=== PATIENT | female | born 1950 ===

== ENCOUNTER 2016-10-16 15:28 | Emergency (ER) | payer MEDICARE, MEDICAID ==
[2016-10-16 15:28] VITALS: BMI 34.7
[2016-10-16 15:38] VITALS: RESP 14; TEMP 97.8; O2SAT 100
--- NOTE | 2016-10-16 15:54 | ED PDOC ---
Upper Extremity Pain/Injury Time Seen by Provider: 10/16/16 15:42 Chief Complaint (Nursing): Upper Extremity Problem/Injury Chief Complaint (Provider): Right arm pain History Per: Patient History/Exam Limitations: no limitations Quality: "Pain" Additional Complaint(s): Fay Nunez is a 66 y/o female presenting to the ER on 10/16/2016 with complaints of right arm and shoulder pain for over a week. Patient reports she is unsure of the mechanism that caused her to fall. She states she took Tramadol earlier today with mild relief. Denies any head injuries, lost of consciousness, dizziness, or chest pain. Past Medical History Reviewed: Historical Data, Nursing Documentation, Vital Signs Vital Signs: Last Vital Signs Temp 97.8 F 10/16/16 15:37 Pulse 96 H 10/16/16 15:37 Resp 14 10/16/16 15:37 BP 156/85 H 10/16/16 15:37 Pulse Ox 100 10/16/16 15:37 - Medical History PMH: Asthma, Back Problems (h/o thoracic and lumbar vertebral fractures), COPD, Depression, Emphysema, Fibromyalgia, HTN, Osteoporosis Denies: HIV, Chronic Kidney Disease - Family History Family History: States: Unknown Family Hx, Hypertension - Social History Current smoker - smoking cessation education provided: No Alcohol: None Drugs: Denies - Home Medications Home Medications: Ambulatory Orders Medication Instructions Recorded Montelukast [Singulair] 10 mg PO HS #0 tab 03/27/14 Zolpidem [Ambien] 10 mg PO HS 11/17/14 Gabapentin [Neurontin] 600 mg PO BID 03/29/15 traMADol [Ultram] 50 mg PO BID 03/29/15 Albuterol 0.083% [Albuterol 3 ml IH Q4H PRN #50 neb 04/23/16 Sulfate 3 Ml] Amlodipine Besylate/Benazepril 5 - 20 mg PO DAILY 04/23/16 [Amlodipine-Benazepril 5-20 mg] Azithromycin [Zithromax] 250 mg PO DAILY #6 dose 04/23/16 Fluticasone/Vilanterol [Breo 1 each IH DAILY 04/23/16 Ellipta 200-25 Mcg INH] Prednisone 50 mg PO DAILY #4 tablet 04/23/16 oxyCODONE/Acetaminophen [Percocet 1 ea PO Q6H PRN #15 tab 10/16/16 5/325 mg Tab] - Allergies Allergies/Adverse Reactions: Allergies Allergy/AdvReac Type Severity Reaction Status Date / Time codeine Allergy RASH Verified 04/23/16 15:22 hydromorphone HCl AdvReac FATIGUE Verified 04/23/16 15:22 [From Dilaudid] Review of Systems ROS Statement: Except As Marked, All Systems Reviewed And Found Negative Cardiovascular: Negative for: Chest Pain, Light Headedness Musculoskeletal: Positive for: Arm Pain Neurological: Negative for: Headache, Dizziness Physical Exam - Reviewed Nursing Documentation Reviewed: Yes Vital Signs Reviewed: Yes - Physical Exam Appears: Positive for: Non-toxic, No Acute Distress Head Exam: Positive for: ATRAUMATIC, NORMOCEPHALIC Skin: Positive for: Normal Color. Negative for: Rash Eye Exam: Positive for: Normal appearance Neck: Positive for: Normal Cardiovascular/Chest: Positive for: Regular Rate, Rhythm. Negative for: Murmur Respiratory: Positive for: Normal Breath Sounds. Negative for: Respiratory Distress Extremity: Negative for: Normal ROM (decreased ROM to right shoulder), Deformity , Swelling Neurologic/Psych: Positive for: Alert, Oriented - ECG O2 Sat by Pulse Oximetry: 100 Medical Decision Making Medical Decision Makin:42 Initial Impression- 66 y/o female with right shoulder and arm pain Initial Plan- * Percocet 1 tab PO * XR Right shoulder * XR Right elbow Documented by Tye Francisco, acting as a scribe for Leigha Borrero PA-C All medical record entries made by the Scribe were at my direction and personally dictated by me. I have reviewed the chart and agree that the record accurately reflects my personal performance of the history, physical exam, medical decision making, and the department course for this patient. I have also personally directed, reviewed, and agree with the discharge instructions and disposition. Disposition - Clinical Impression Clinical Impression: Shoulder injury, Elbow injury - Patient ED Disposition Is Patient to be Admitted: No Counseled Patient/Family Regarding: Diagnosis, Need For Followup, Rx Given - Disposition Referrals: Jasmeet Weinberg MD [Staff Provider] - Disposition: Routine/Home Disposition Time: 17:30 Condition: GOOD Prescriptions: oxyCODONE/Acetaminophen [Percocet 5/325 mg Tab] 1 ea PO Q6H PRN #15 tab PRN Reason: Pain, Severe (8-10) Instructions: Fall Prevention (ED)
[2016-10-16] MEDS ORDERED: Oxycodone/Acetaminophen 5/325 mg Tab PO STA (16:02)
[2016-10-16] MEDS ORDERED: Oxycodone/Acetaminophen 5/325 mg Tab ONE (16:26)
--- NOTE | 2016-10-16 17:10 | RAD ---
PROCEDURE: Radiographs of the right elbow. HISTORY: pain, s/p fall 2 days ago COMPARISON: No prior. FINDINGS: BONES: No fracture identified. Bones are demineralized. JOINTS: No dislocation seen. Bony articulations appear maintained. SOFT TISSUES: Unremarkable JOINT EFFUSION: There is no elevation of fat pads to suggest a joint effusion OTHER FINDINGS: None. IMPRESSION: No fracture or dislocation identified.
--- NOTE | 2016-10-16 17:11 | RAD ---
PROCEDURE: Radiographs of the Right Shoulder HISTORY: pain s/p fall 2 days ago COMPARISON: None available. FINDINGS: BONES: Osseous demineralization limits evaluation for acute fracture lines. No acute displaced fracture. The distal clavicle and underlying ribs appear intact. JOINTS: No acute dislocation. SOFT TISSUES: Soft tissues appear unremarkable. No evidence of radiopaque foreign body. IMPRESSION: Osseous demineralization. No acute displaced fracture or dislocation evident. If symptoms persist or if there is continued clinical concern, x-ray follow-up in 7-10 days should be considered.
[2016-10-16 17:57] VITALS: BP 147/83; PULSE 87
== END 2016-10-16 17:56 | disposition home or self-care (01) ==
LOC: H.ER 15:28
DX: S49.91XA Unspecified injury of right shoulder and upper arm, initial encounter (principal); S59.901A Unspecified injury of right elbow, initial encounter; W19.XXXA Unspecified fall, initial encounter

== ENCOUNTER 2017-02-18 14:18 | Emergency (ER) | payer MEDICARE, MEDICAID ==
[2017-02-18 14:18] VITALS: BMI 34.7
[2017-02-18 14:25] VITALS: BP 136/72; PULSE 89; RESP 19; TEMP 98; O2SAT 98
[2017-02-18] MEDS ORDERED: Sodium Chloride 0.9% 1,000 ML IV STA (14:36)
[2017-02-18 14:58] LABS: BASO # 0.1 K/uL (0.0-0.2); BASO % 1.2 % (0.0-2.0); EOS # 1.8 K/uL (0.0-0.7); EOS % 15.7 % (0.0-4.0); HEMATOCRIT 40.9 % (34.0-47.0); LYMPH # 1.6 K/uL (1.0-4.3); MEAN CELL VOLUME 84.2 fl (81.0-99.0); MEAN CORPUSCULAR HEMOGLOBIN 27.7 pg (27.0-31.0); MEAN CORPUSCULAR HGB CONC 32.8 g/dL (33.0-37.0); MEAN PLATELET VOLUME 7.7 fl (7.2-11.7); MONO # 1.3 K/uL (0.0-0.8); MONO % 10.9 % (0.0-10.0); NEUT # 6.7 K/uL (1.8-7.0); NEUT % 58.2 % (50.0-75.0); RED CELL DISTRIBUTION WIDTH 14.3 % (11.5-14.5); WHITE BLOOD COUNT 11.6 K/uL (4.8-10.8)
[2017-02-18 15:08] LABS: ALB/GLOB RATIO 1.2 (1.0-2.1); ALKALINE PHOSPHATASE 129 U/L (38-126); ALT/SGPT 32 U/L (9-52); AST/SGOT 34 U/L (14-36); BILIRUBIN,TOTAL 0.7 mg/dl (0.2-1.3); BLOOD UREA NITROGEN 12 mg/dl (7-17); CALCIUM 9.3 mg/dL (8.4-10.2); CARBON DIOXIDE 28 mmol/L (22-30); CHLORIDE 105 mmol/L (98-107); GFR AFRICAN-AMERICAN > 60; GLUCOSE,RANDOM 92 mg/dL (65-105); POTASSIUM 4.6 MMOL/L (3.6-5.0); SODIUM 143 mmol/l (132-148); TOTAL PROTEIN 7.9 G/DL (6.3-8.2)
--- NOTE | 2017-02-18 15:33 | ED PDOC ---
HPI: CCC, URI, Sore Throat Time Seen by Provider: 02/18/17 14:28 Chief Complaint (Nursing): Flu-like Symptoms Chief Complaint (Provider): Flu-like Symptoms History Per: Patient History/Exam Limitations: no limitations Onset/Duration Of Symptoms: Days (x6) Additional Complaint(s): Fay Nunez is a 66 year old female with a past medical history of depression, fibromyalgia, hypertension, osteoporosis and COPD presenting to the ED for an evaluation of flu-like symptoms occurring for 6 days prior to arrival. The patient states he has fatigue, chills, sore throat, and body aches. The patient denies cough, current headache, syncope, difficulty breathing, vomiting, diarrhea, or any sick contacts. She also states she did not receive her flu shot this year. PMD: Nina Curz MD Past Medical History Reviewed: Historical Data, Nursing Documentation, Vital Signs Vital Signs: Last Vital Signs Temp 98.0 F 02/18/17 14:23 Pulse 89 02/18/17 14:23 Resp 19 02/18/17 14:23 BP 136/72 02/18/17 14:23 Pulse Ox 98 02/18/17 16:10 - Medical History PMH: Asthma, Back Problems (h/o thoracic and lumbar vertebral fractures), COPD, Depression, Emphysema, Fibromyalgia, HTN, Osteoporosis Denies: HIV, Chronic Kidney Disease - Family History Family History: States: Hypertension - Social History Current smoker - smoking cessation education provided: No Ex-Smoker (has not smoked in the last 12 months): No Alcohol: None Drugs: Denies - Home Medications Home Medications: Ambulatory Orders Medication Instructions Recorded Montelukast [Singulair] 10 mg PO HS #0 tab 03/27/14 Zolpidem [Ambien] 10 mg PO HS 11/17/14 Gabapentin [Neurontin] 600 mg PO BID 03/29/15 traMADol [Ultram] 50 mg PO BID 03/29/15 Albuterol 0.083% [Albuterol 0.083% 3 ml IH Q4H PRN #50 neb 04/23/16 Inhal Linda (2.5 mg/3 ml) UD] Amlodipine Besylate/Benazepril 5 - 20 mg PO DAILY 04/23/16 [Amlodipine-Benazepril 5-20 mg] Fluticasone/Vilanterol [Breo 1 each IH DAILY 04/23/16 Ellipta 200-25 Mcg INH] Albuterol 0.083% [Albuterol 0.083% 2.5 mg IH QID #30 neb 01/08/17 Inhal Linda (2.5 mg/3 ml) UD] Levofloxacin [Levaquin] 500 mg PO DAILY #7 tablet 01/08/17 Promethazine [Phenergan Syrup] 12.5 mg PO Q6 PRN 7 Days #1 dose 01/08/17 predniSONE [predniSONE Tab] 20 mg PO DAILY #7 tab 01/08/17 Amoxicillin 875 mg PO BID #14 tab 02/18/17 Ibuprofen [Motrin Tab] 600 mg PO Q6 PRN #15 tab 02/18/17 - Allergies Allergies/Adverse Reactions: Allergies Allergy/AdvReac Type Severity Reaction Status Date / Time codeine Allergy RASH Verified 04/23/16 15:22 hydromorphone HCl AdvReac FATIGUE Verified 04/23/16 15:22 [From Dilaudid] Review of Systems ROS Statement: Except As Marked, All Systems Reviewed And Found Negative Constitutional: Positive for: Chills, Other (fatigue and body aches) ENT: Positive for: Throat Pain Respiratory: Negative for: Cough, Shortness of Breath (no difficulty breathing) Gastrointestinal: Negative for: Vomiting, Diarrhea Neurological: Negative for: Headache, Other (no syncope) Physical Exam - Reviewed Nursing Documentation Reviewed: Yes Vital Signs Reviewed: Yes - Physical Exam Appears: Positive for: Non-toxic, No Acute Distress Head Exam: Positive for: ATRAUMATIC, NORMOCEPHALIC Skin: Positive for: Normal Color, Warm, Dry Eye Exam: Positive for: Normal appearance, EOMI, PERRL ENT: Positive for: Normal ENT Inspection, Pharynx Is (normal), TM Is/Are (normal ) Neck: Positive for: Normal, Painless ROM, Supple Cardiovascular/Chest: Positive for: Regular Rate, Rhythm, Chest Non Tender Respiratory: Positive for: Normal Breath Sounds. Negative for: Respiratory Distress Pulses-Carotid (L): 2+ Pulses-Carotid (R): 2+ Pulses-Dorsalis Pedis (L): 2+ Pulses-Dorsalis Pedis (R): 2+ Pulses-Radial (L): 2+ Pulses-Radial (R): 2+ Gastrointestinal/Abdominal: Positive for: Normal Exam, Soft. Negative for: Tenderness Back: Positive for: Normal Inspection Extremity: Positive for: Normal ROM. Negative for: Pedal Edema, Deformity Neurologic/Psych: Positive for: Alert, Oriented (x3). Negative for: Motor/ Sensory Deficits - Laboratory Results Result Diagrams: 02/18/17 14:53 02/18/17 14:53 - ECG O2 Sat by Pulse Oximetry: 98 (RA) Pulse Ox Interpretation: Normal Medical Decision Making Medical Decision Making: Time: 14:28 Impression: URI, RSV, COPD exacerbation, bronchitis, Plan: * CMP * CBC (with differential) * Influenza A B * Urinalysis * NS 0.9% 1,000 ml IV 1,000 mls/hr * Toradol 30 mg IV * [RAD] Chest Two Views (PA/LAT) * Reevaluation Chest X-ray was read by me, Meir Hudson DO, resulted as negative. labs reveal mild leukocytosis and no evidence of other clinical;y significant emergent abnormality. Repeat Alk Phos 1 month to assure resolution. FLu neg Given erythematous throat, clinical symptoms, hx COPD, cover w amoxil and followup PMD On re-eval feeling better, drinking coffee in ED. Scribe Attestation: Documented by Leena Avendano, acting as a scribe for Meir Hudson DO. Provider Scribe Attestation: All medical record entries made by the Scribe were at my direction and personally dictated by me. I have reviewed the chart and agree that the record accurately reflects my personal performance of the history, physical exam, medical decision making, and the department course for this patient. I have also personally directed, reviewed, and agree with the discharge instructions and disposition. Disposition - Clinical Impression Clinical Impression: Pharyngitis, Influenza-like symptoms - Patient ED Disposition Is Patient to be Admitted: No Counseled Patient/Family Regarding: Studies Performed, Diagnosis, Need For Followup, Rx Given - Disposition Referrals: Nina Cruz MD [Medical Doctor] - Disposition: Routine/Home Disposition Time: 16:10 Condition: STABLE Additional Instructions: Take medications as directed. Return to ER for any new or worsening symptoms. Prescriptions: Amoxicillin 875 mg PO BID #14 tab Ibuprofen [Motrin Tab] 600 mg PO Q6 PRN #15 tab PRN Reason: Pain, Moderate (4-7) Instructions: Pharyngitis (ED), Weakness (ED) Forms: [employer] (Ghanaian)
--- NOTE | 2017-02-18 16:12 | RAD ---
HISTORY: fever COMPARISON: Frontal chest 01/06/2017. TECHNIQUE: Chest PA and lateral FINDINGS: LUNGS: No active pulmonary disease. PLEURA: No significant pleural effusion identified. No pneumothorax apparent. CARDIOVASCULAR: Borderline cardiomegaly is stable. No pulmonary derangement evident. OSSEOUS STRUCTURES: No significant abnormalities. VISUALIZED UPPER ABDOMEN: Normal. OTHER FINDINGS: Right paratracheal soft tissue prominence is stable including possible substernal thyroid gland or delete great vessel ectasis dating back at least to 06/07/[address] IMPRESSION: Stable borderline cardiomegaly. No pulmonary derangement or acute pulmonary changes identified.
[2017-02-18 17:01] LABS: RBC URINE 3 /hpf (0-3); URINE BILIRUBIN NEGATIVE (NEGATIVE); URINE BLOOD NEGATIVE (NEGATIVE); URINE COLOR YELLOW (YELLOW); URINE GLUCOSE (UA) NEG (Normal); URINE KETONE NEGATIVE (NEGATIVE); URINE LEUKOCYTE ESTERASE NEG Leu/uL (Negative); URINE PROTEIN 30 mg/dL (NEGATIVE); WBC URINE 1 /hpf (0-5)
== END 2017-02-18 16:43 | disposition home or self-care (01) ==
LOC: H.ER 14:18
DX: J02.9 Acute pharyngitis, unspecified (principal); R53.1 Weakness; F32.9 Major depressive disorder, single episode, unspecified; I10 Essential (primary) hypertension; M79.7 Fibromyalgia; M81.0 Age-related osteoporosis without current pathological fracture; J44.1 Chronic obstructive pulmonary disease with (acute) exacerbation
CPT/HCPCS: 71020; 80053; 81003; 85025; 87804; 96361; 96374; 99283; J1885; J7040

== ENCOUNTER 2017-08-20 14:29 | Emergency (ER) | payer MEDICARE, MEDICAID ==
[2017-08-20 14:29] VITALS: BMI 34.7
[2017-08-20 14:46] VITALS: BP 127/81; PULSE 87; TEMP 98.5; O2SAT 96
[2017-08-20 15:02] VITALS: RESP 23
[2017-08-20] MEDS ORDERED: Albuterol-Ipratrop 3 mg / 0.5 (3 ml) UD INH STA (15:03)
[2017-08-20] MEDS ORDERED: Albuterol-Ipratrop 3 mg / 0.5 (3 ml) UD IH STA ×2 (15:03→16:29)
[2017-08-20] MEDS ORDERED: Sodium Chloride 0.9% 1,000 ML IV STA (15:03)
[2017-08-20 15:19] LABS: BASO # 0.1 K/uL (0.0-0.2); BASO % 1.2 % (0.0-2.0); EOS # 2.6 K/uL (0.0-0.7); EOS % 25.5 % (0.0-4.0); HEMOGLOBIN 13.6 g/dL (12.0-16.0); LYMPH # 1.6 K/uL (1.0-4.3); LYMPH % 15.4 % (20.0-40.0); MEAN CELL VOLUME 83.8 fl (81.0-99.0); MEAN CORPUSCULAR HGB CONC 33.5 g/dL (33.0-37.0); MEAN PLATELET VOLUME 7.9 fl (7.2-11.7); MONO # 0.7 K/uL (0.0-0.8); MONO % 7.2 % (0.0-10.0); NEUT # 5.2 K/uL (1.8-7.0); NEUT % 50.7 % (50.0-75.0); NRBC % 0.1 % (0.0-0.0); PLATELET COUNT 287 K/uL (130-400); RBC 4.85 Mil/uL (3.80-5.20); RED CELL DISTRIBUTION WIDTH 14.6 % (11.5-14.5); WHITE BLOOD COUNT 10.3 K/uL (4.8-10.8)
[2017-08-20 15:37] LABS: BLOOD UREA NITROGEN 11 mg/dl (7-17); CALCIUM 8.8 mg/dL (8.4-10.2); GFR AFRICAN-AMERICAN > 60; GFR NON-AFRICAN AMERICAN > 60
--- NOTE | 2017-08-20 15:46 | ED PDOC ---
HPI: SOB/CHF/COPD Time Seen by Provider: 08/20/17 14:59 Chief Complaint (Nursing): Shortness Of Breath Chief Complaint (Provider): SOB/cough History Per: Patient History/Exam Limitations: no limitations Onset/Duration Of Symptoms: Days Current Symptoms Are (Timing): Still Present Additional Complaint(s): 67 y/o F with PMHx of Asthma, HTN, COPD present to ED complaining of increased baseline SOB x 3-4 days, associated with productive cough, white non bloody sputum, wheezing, chills, chest tightness sensation. Has been using her Ventolin , but her respiratory symptoms persist. Denies chest pain, N/V, abd pain, dizziness, diaphoresis, swelling legs or other complains. PMD: Nina Miller Past Medical History Vital Signs: Last Vital Signs Temp 98.5 F 08/20/17 14:43 Pulse 87 08/20/17 14:43 Resp 23 08/20/17 14:59 BP 127/81 08/20/17 14:43 Pulse Ox 96 08/20/17 15:50 - Medical History PMH: Asthma, Back Problems (h/o thoracic and lumbar vertebral fractures), COPD, Depression, Emphysema, Fibromyalgia, HTN, Osteoporosis Denies: HIV, Chronic Kidney Disease - Family History Family History: States: Unknown Family Hx, Hypertension - Social History Alcohol: None Drugs: Denies - Home Medications Home Medications: Ambulatory Orders Medication Instructions Recorded Montelukast [Singulair] 10 mg PO HS #0 tab 03/27/14 Zolpidem [Ambien] 10 mg PO HS 11/17/14 Gabapentin [Neurontin] 600 mg PO BID 03/29/15 traMADol [Ultram] 50 mg PO BID 03/29/15 Albuterol 0.083% [Albuterol 0.083% 3 ml IH Q4H PRN #50 neb 04/23/16 Inhal Linda (2.5 mg/3 ml) UD] Amlodipine Besylate/Benazepril 5 - 20 mg PO DAILY 04/23/16 [Amlodipine-Benazepril 5-20 mg] Fluticasone/Vilanterol [Breo 1 each IH DAILY 04/23/16 Ellipta 200-25 Mcg INH] Albuterol 0.083% [Albuterol 0.083% 2.5 mg IH QID #30 neb 01/08/17 Inhal Linda (2.5 mg/3 ml) UD] Levofloxacin [Levaquin] 500 mg PO DAILY #7 tablet 01/08/17 Promethazine [Phenergan Syrup] 12.5 mg PO Q6 PRN 7 Days #1 dose 01/08/17 predniSONE [predniSONE Tab] 20 mg PO DAILY #7 tab 01/08/17 Amoxicillin 875 mg PO BID #14 tab 02/18/17 Ibuprofen [Motrin Tab] 600 mg PO Q6 PRN #15 tab 02/18/17 Albuterol Sulfate [Proair Hfa] 0.09 mg IH Q6H PRN #2 inh 08/20/17 predniSONE [predniSONE Tab] 20 mg PO BID 5 Days tab 08/20/17 - Allergies Allergies/Adverse Reactions: Allergies Allergy/AdvReac Type Severity Reaction Status Date / Time codeine Allergy RASH Verified 08/20/17 14:43 hydromorphone HCl AdvReac FATIGUE Verified 08/20/17 14:43 [From Dilaudid] Curb-65 Severity Score - CURB-65 Severity Score Confusion: No Respiratory Rate greater than/equal to 30: No Systolic BP <90 or Diastolic BP less than/equal 60mmHg: No Age >64: Yes Curb-65 Score: 1 Percentage 30-day mortality: 2.7% Wells Criteria for PE - Wells Criteria for Pulmonary Embolism Clinical Signs and Symptoms of DVT: No P.E is #1 Diagnosis, or Equally Likely: No Heart Rate >100: No Immobilization at least 3 days;Surgery previous 4 weeks: No Previous, objectively diagnosed PE or DVT: No Hemoptysis: No Malignancy w/treatment within 6 months, or palliative: No Total Score: 0 Review of Systems ROS Statement: Except As Marked, All Systems Reviewed And Found Negative (as per HPI) Physical Exam - Reviewed Nursing Documentation Reviewed: Yes Vital Signs Reviewed: Yes - Physical Exam Appears: Positive for: Non-toxic, No Acute Distress Head Exam: Positive for: ATRAUMATIC, NORMOCEPHALIC Skin: Positive for: Normal Color, Warm, Dry Eye Exam: Positive for: Normal appearance. Negative for: Conjunctival injection ENT: Positive for: Normal ENT Inspection. Negative for: Sinus Pain/Drainage, Nasal Congestion, Pharyngeal Erythema, Tonsillar Exudate Neck: Positive for: Normal, Supple Cardiovascular/Chest: Positive for: Regular Rate, Rhythm. Negative for: Chest Non Tender, Edema, Bradycardia, Tachycardia Respiratory: Positive for: Decreased Breath Sounds, Wheezing. Negative for: Accessory Muscle Use, Crackles, Rales, Rhonchi, Respiratory Distress Gastrointestinal/Abdominal: Positive for: Bowel Sounds (present), Soft. Negative for: Tenderness, Distended, Guarding, Rebound Back: Positive for: Normal Inspection. Negative for: L CVA Tenderness, R CVA Tenderness Extremity: Positive for: Capillary Refill (<2). Negative for: Pedal Edema Neurologic/Psych: Positive for: Alert, Oriented - Laboratory Results Result Diagrams: 08/20/17 15:13 08/20/17 15:13 - ECG O2 Sat by Pulse Oximetry: 96 Medical Decision Making Medical Decision Making: Short of Breath -Asthma vs COPD exacerbation -labs: CBC, BMP, troponin I, pr--BNP -Duoneb neb -Solumedrol 125 mg IV once -CXR case discussed with Dr. Francisco Re-evaluation labs: CBC : no leukocytosis, BMP: unremarkable, troponin I x 1 negative, Pro- BNP negative -CXR reported as no active disease -feeling better after third Duoneb -stable for discharge home with recommended outpatient f/u in 2-3 days -ER precautions given Case discussed with Dr. Francisco Disposition - Clinical Impression Clinical Impression: Asthma attack - Patient ED Disposition Is Patient to be Admitted: No Discussed With : Pedro Francisco - Disposition Referrals: [facility] [Outside] - 08/21/17 Disposition: Routine/Home Disposition Time: 17:09 Condition: STABLE Additional Instructions: Return if not better in 3 days. Prescriptions: Albuterol Sulfate [Proair Hfa] 0.09 mg IH Q6H PRN #2 inh PRN Reason: Wheezing predniSONE [predniSONE Tab] 20 mg PO BID 5 Days tab Instructions: Asthma in Adults Forms: [employer] (Algerian) Print Language: MALTESE
[2017-08-20 15:52] LABS: EOSINOPHIL 26 % (0-7); LYMPHOCYTE 24 % (20-50); MONOCYTE 8 % (0-10); MYELOCYTE 1 % (0-0); NEUTROPHIL 41 % (42-75); PLATELET ESTIMATE NORMAL (NORMAL); TOTAL CELLS COUNTED 100
[2017-08-20 15:53] LABS: B-TYPE NATRIURETIC PEPTIDE 62.3 pg/ml (0-900)
--- NOTE | 2017-08-20 16:29 | RAD ---
HISTORY: Dyspnea COMPARISON: 02/18/2017 FINDINGS: LUNGS: No active pulmonary disease. PLEURA: No significant pleural effusion identified, no pneumothorax apparent. CARDIOVASCULAR: No radiographic findings to suggest acute or significant cardiovascular disease. OSSEOUS STRUCTURES: No significant abnormalities. VISUALIZED UPPER ABDOMEN: Normal. OTHER FINDINGS: None. IMPRESSION: No active disease. No significant interval change compared to the prior examination(s).
[2017-08-20] MEDS ORDERED: Albuterol-Ipratrop 3 mg / 0.5 (3 ml) UD ONE (17:20)
--- NOTE | 2017-08-21 08:48 | CARD ---
APPROVED REPORT EKG Measurement Heart [id number] <Conclusion> Normal sinus rhythm Septal infarct, age undetermined Abnormal ECG
== END 2017-08-20 18:08 | disposition home or self-care (01) ==
LOC: H.ER 14:29
DX: J45.901 Unspecified asthma with (acute) exacerbation (principal); J44.9 Chronic obstructive pulmonary disease, unspecified; F32.9 Major depressive disorder, single episode, unspecified; I10 Essential (primary) hypertension; M79.7 Fibromyalgia; M81.0 Age-related osteoporosis without current pathological fracture
CPT/HCPCS: 71045; 80048; 83880; 84484; 85025; 93005; 94640; 96374; 99283; J2930; J7030

== ENCOUNTER 2018-02-12 12:33 | Emergency (ER) | payer MEDICARE, MEDICAID ==
[2018-02-12 12:34] VITALS: BMI 34.7
[2018-02-12] MEDS ORDERED: Albuterol-Ipratrop 3 mg / 0.5 (3 ml) UD IH STA ×2 (13:19→15:21)
--- NOTE | 2018-02-12 13:22 | ED PDOC ---
HPI: CCC, URI, Sore Throat Time Seen by Provider: 02/12/18 12:44 Chief Complaint (Nursing): Cough, Cold, Congestion History Per: Patient Onset/Duration Of Symptoms: Days (3) Current Symptoms Are (Timing): Still Present Associated Symptoms: Fever, Cough, Sputum Severity: Moderate Additional Complaint(s): Cough productive yellow sputum assoc with SOB and wheezing x 3 days. No improvement with inhaler. Past Medical History Vital Signs: Last Vital Signs Temp 100.6 F H 02/12/18 12:40 Pulse 113 H 02/12/18 12:40 Resp 16 02/12/18 12:40 BP 135/87 02/12/18 12:40 Pulse Ox 93 L 02/12/18 12:40 - Medical History PMH: Asthma, Back Problems (h/o thoracic and lumbar vertebral fractures), COPD, Depression, Emphysema, Fibromyalgia, HTN, Osteoporosis Denies: HIV, Chronic Kidney Disease - Family History Family History: States: Unknown Family Hx, Hypertension - Home Medications Home Medications: Ambulatory Orders Medication Instructions Recorded Montelukast [Singulair] 10 mg PO HS #0 tab 03/27/14 Zolpidem [Ambien] 10 mg PO HS 11/17/14 Gabapentin [Neurontin] 600 mg PO BID 03/29/15 traMADol [Ultram] 50 mg PO BID 03/29/15 Albuterol 0.083% [Albuterol 0.083% 3 ml IH Q4H PRN #50 neb 04/23/16 Inhal Linda (2.5 mg/3 ml) UD] Amlodipine Besylate/Benazepril 5 - 20 mg PO DAILY 04/23/16 [Amlodipine-Benazepril 5-20 mg] Fluticasone/Vilanterol [Breo 1 each IH DAILY 04/23/16 Ellipta 200-25 Mcg INH] Albuterol 0.083% [Albuterol 0.083% 2.5 mg IH QID #30 neb 01/08/17 Inhal Linda (2.5 mg/3 ml) UD] Levofloxacin [Levaquin] 500 mg PO DAILY #7 tablet 01/08/17 Promethazine [Phenergan Syrup] 12.5 mg PO Q6 PRN 7 Days #1 dose 01/08/17 predniSONE [predniSONE Tab] 20 mg PO DAILY #7 tab 01/08/17 Amoxicillin 875 mg PO BID #14 tab 02/18/17 Ibuprofen [Motrin Tab] 600 mg PO Q6 PRN #15 tab 02/18/17 Albuterol Sulfate [Proair Hfa] 0.09 mg IH Q6H PRN #2 inh 08/20/17 predniSONE [predniSONE Tab] 20 mg PO BID 5 Days tab 08/20/17 Albuterol HFA [Ventolin HFA 90 2 puff IH [id number] #1 puff 11/05/17 mcg/actuation (8 g)] Prednisone [Deltasone] 20 mg PO BID #8 tablet 11/05/17 Azithromycin [Zithromax] 250 mg PO DAILY #6 tab 02/12/18 Prednisone 10 mg PO TID #15 tab.ds.pk 02/12/18 - Allergies Allergies/Adverse Reactions: Allergies Allergy/AdvReac Type Severity Reaction Status Date / Time codeine Allergy RASH Verified 08/20/17 14:43 hydromorphone HCl AdvReac FATIGUE Verified 08/20/17 14:43 [From Dilaudid] Review of Systems ROS Statement: Except As Marked, All Systems Reviewed And Found Negative Constitutional: Positive for: Fever Respiratory: Positive for: Cough, Shortness of Breath, Wheezing Physical Exam - Reviewed Nursing Documentation Reviewed: Yes Vital Signs Reviewed: Yes - Physical Exam Appears: Positive for: Non-toxic, No Acute Distress Head Exam: Positive for: ATRAUMATIC, NORMAL INSPECTION, NORMOCEPHALIC Skin: Positive for: Normal Color, Warm, DRY Eye Exam: Positive for: EOMI, Normal appearance, PERRL ENT: Positive for: Normal ENT Inspection Neck: Positive for: Normal, Painless ROM Cardiovascular/Chest: Positive for: Regular Rate, Rhythm Respiratory: Positive for: Rhonchi, Wheezing Gastrointestinal/Abdominal: Positive for: Normal Exam, Soft Back: Positive for: Normal Inspection Extremity: Positive for: Normal ROM Neurologic/Psych: Positive for: Alert, Oriented - Laboratory Results Result Diagrams: 02/12/18 13:40 02/12/18 13:40 - ECG O2 Sat by Pulse Oximetry: 93 Disposition - Clinical Impression Clinical Impression: COPD exacerbation, Bronchitis - Patient ED Disposition Is Patient to be Admitted: No Counseled Patient/Family Regarding: Studies Performed, Diagnosis, Need For Followup, Rx Given - Disposition Referrals: Jame Donald MD [Staff Provider] - Disposition: Routine/Home Disposition Time: 15:52 Condition: FAIR Prescriptions: Azithromycin [Zithromax] 250 mg PO DAILY #6 tab Prednisone 10 mg PO TID #15 tab.ds.pk Instructions: Acute Bronchitis, Exacerbation of COPD Forms: [employer] (Frisian)
[2018-02-12 13:52] LABS: BASO # 0.1 K/uL (0.0-0.2); BASO % 0.5 % (0.0-2.0); EOS # 1.9 K/uL (0.0-0.7); EOS % 19.3 % (0.0-4.0); HEMOGLOBIN 12.9 g/dL (12.0-16.0); LYMPH # 0.7 K/uL (1.0-4.3); MEAN CELL VOLUME 87.3 fl (81.0-99.0); MEAN CORPUSCULAR HGB CONC 32.1 g/dL (33.0-37.0); MONO % 10.1 % (0.0-10.0); NEUT # 6.2 K/uL (1.8-7.0); NEUT % 63.1 % (50.0-75.0); PLATELET COUNT 232 K/uL (130-400); RBC 4.62 Mil/uL (3.80-5.20); RED CELL DISTRIBUTION WIDTH 13.7 % (11.5-14.5); WHITE BLOOD COUNT 9.9 K/uL (4.8-10.8)
[2018-02-12 13:55] LABS: VENOUS BLOOD GAS PCO2 46 mmHg (40-60); VENOUS BLOOD GAS PO2 39 mm/Hg (30-55)
[2018-02-12 14:07] LABS: ALB/GLOB RATIO 1.2 (1.0-2.1); ALBUMIN 4.1 g/dL (3.5-5.0); BLOOD UREA NITROGEN 10 mg/dl (7-17); CALCIUM 8.6 mg/dL (8.4-10.2); GFR NON-AFRICAN AMERICAN > 60
[2018-02-12 14:10] LABS: ALT/SGPT 28 U/L (9-52); AST/SGOT 32 U/L (14-36)
--- NOTE | 2018-02-12 14:21 | RAD ---
Date of service: 02/12/2018 HISTORY: Cough COMPARISON: 11/05/2017. TECHNIQUE: Chest PA and lateral FINDINGS: LINES AND TUBES: None. LUNG AND PLEURA: The lungs are well inflated and clear. No pleural effusion or pneumothorax. HEART AND MEDIASTINUM: The heart is not enlarged. No aortic atherosclerotic calcification present. The hilar and mediastinal contours are within normal limits. SKELETAL STRUCTURES: The bony structures are within normal limits for the patient's age. VISUALIZED UPPER ABDOMEN: Normal. OTHER FINDINGS: None. IMPRESSION: No active pulmonary disease.
[2018-02-12 15:26] LABS: PLATELET ESTIMATE NORMAL (NORMAL); TOTAL CELLS COUNTED 100
[2018-02-12] MEDS ORDERED: Albuterol-Ipratrop 3 mg / 0.5 (3 ml) UD ONE (15:32)
[2018-02-12 15:38] LABS: BASOPHIL 1 % (0-2); EOSINOPHIL 21 % (0-7); LYMPHOCYTE 9 % (20-50); MONOCYTE 8 % (0-10); NEUTROPHIL 61 % (42-75)
[2018-02-12 16:18] VITALS: BP 128/78; PULSE 98; RESP 19; TEMP 99.6; O2SAT 95
--- NOTE | 2018-02-12 18:53 | CARD ---
APPROVED REPORT Date of service: 02/12/2018 EKG Measurement Heart [id number] <Conclusion> Sinus tachycardia Otherwise normal ECG
== END 2018-02-12 16:18 | disposition home or self-care (01) ==
LOC: H.ER 12:33
DX: J44.1 Chronic obstructive pulmonary disease with (acute) exacerbation (principal); J40 Bronchitis, not specified as acute or chronic; I10 Essential (primary) hypertension
CPT/HCPCS: 71046; 80053; 82803; 85025; 87040; 87804; 93005; 94640; 96374; 99282; J2930

== ENCOUNTER 2018-04-22 13:30 | Inpatient (IN) | payer MEDICARE, MEDICAID ==
[2018-04-22 13:31] VITALS: BMI 34.7
[2018-04-22] MEDS ORDERED: Albuterol-Ipratrop 3 mg / 0.5 (3 ml) UD INH STA ×3 (13:48→15:07)
[2018-04-22] MEDS ORDERED: Albuterol-Ipratrop 3 mg / 0.5 (3 ml) UD ONE ×2 (13:56→15:14)
[2018-04-22] MEDS ORDERED: Magnesium Sulfate 2 gm/50 ml 2 GM/50 ML BAG ONE (13:56)
[2018-04-22] MEDS ORDERED: Magnesium Sulfate 2 gm/50 ml 2 GM/50 ML BAG IVPB ONE (14:00)
--- NOTE | 2018-04-22 14:08 | ED PDOC ---
HPI: SOB/CHF/COPD Time Seen by Provider: 04/22/18 13:47 Chief Complaint (Nursing): Shortness Of Breath Chief Complaint (Provider): Shortness Of Breath History Per: Patient History/Exam Limitations: no limitations Onset/Duration Of Symptoms: Days Current Symptoms Are (Timing): Still Present Additional Complaint(s): 68 y/o female with a PMHx of COPD presents to the ED for evaluation of shortness of breath associated with chest tightness for more than one week. Patient states shortness of breath is on and off. Patient reports symptoms are similar to those of the past that are associated with her COPD exacerbation. Otherwise, patient denies nausea, vomiting and getting this year's flu vaccination. PMD: Nina Cruz Past Medical History Reviewed: Historical Data, Nursing Documentation, Vital Signs Vital Signs: Last Vital Signs Temp 98.4 F 04/22/18 13:43 Pulse 94 H 04/22/18 13:43 Resp 16 04/22/18 13:43 BP 148/85 04/22/18 13:43 Pulse Ox 99 04/22/18 13:43 - Medical History PMH: Asthma, Back Problems (h/o thoracic and lumbar vertebral fractures), COPD, Depression, Emphysema, Fibromyalgia, HTN, Osteoporosis Denies: HIV, Chronic Kidney Disease - Surgical History Surgical History: No Surg Hx - Family History Family History: States: Unknown Family Hx, Hypertension - Home Medications Home Medications: Ambulatory Orders Medication Instructions Recorded Montelukast [Singulair] 10 mg PO HS #0 tab 03/27/14 Zolpidem [Ambien] 10 mg PO HS 11/17/14 Gabapentin [Neurontin] 600 mg PO BID 03/29/15 traMADol [Ultram] 50 mg PO BID 03/29/15 Albuterol 0.083% [Albuterol 0.083% 3 ml IH Q4H PRN #50 neb 04/23/16 Inhal Linda (2.5 mg/3 ml) UD] Amlodipine Besylate/Benazepril 5 - 20 mg PO DAILY 04/23/16 [Amlodipine-Benazepril 5-20 mg] Fluticasone/Vilanterol [Breo 1 each IH DAILY 04/23/16 Ellipta 200-25 Mcg INH] Albuterol 0.083% [Albuterol 0.083% 2.5 mg IH QID #30 neb 01/08/17 Inhal Linda (2.5 mg/3 ml) UD] Albuterol HFA [Ventolin HFA 90 2 puff IH [id number] #1 puff 11/05/17 mcg/actuation (8 g)] - Allergies Allergies/Adverse Reactions: Allergies Allergy/AdvReac Type Severity Reaction Status Date / Time codeine Allergy RASH Verified 08/20/17 14:43 hydromorphone HCl AdvReac FATIGUE Verified 08/20/17 14:43 [From Dilaudid] Review of Systems ROS Statement: Except As Marked, All Systems Reviewed And Found Negative Cardiovascular: Positive for: Other (chest tightness ) Respiratory: Positive for: Shortness of Breath, Wheezing Gastrointestinal: Negative for: Nausea, Vomiting Musculoskeletal: Positive for: Back Pain ("tightness" when wheezing) Physical Exam - Reviewed Nursing Documentation Reviewed: Yes Vital Signs Reviewed: Yes - Physical Exam Appears: Positive for: Uncomfortable, In Acute Distress Head Exam: Positive for: ATRAUMATIC, NORMOCEPHALIC Skin: Positive for: Normal Color, Warm, Dry Eye Exam: Positive for: Normal appearance, EOMI, PERRL Neck: Positive for: Normal, Painless ROM Cardiovascular/Chest: Positive for: Regular Rate, Rhythm. Negative for: Murmur Respiratory: Positive for: Decreased Breath Sounds, Wheezing (bilateral wheezing), Other (tachypnea) Extremity: Positive for: Normal ROM. Negative for: Deformity Neurologic/Psych: Positive for: Alert, Oriented. Negative for: Motor/Sensory Deficits - Laboratory Results Result Diagrams: 04/22/18 15:10 04/22/18 15:10 - ECG O2 Sat by Pulse Oximetry: 99 (RA) Pulse Ox Interpretation: Normal Medical Decision Making Medical Decision Making: Time: 1348 A/P: Acute COPD exacerbation -- Will provide symptomatic treatment -- Will reassess patient -- EKG -- Duoneb 3mg/0.5mg 3 ml (UD) 3 ml INH -- Magnesium 2 gm in 50 ml IVPB -- SOLU-Medrol 125 mg IVP -- Peak Flow Pre/Post Tx Time: 1619 -- On re-evaluation, patient has no improvement of symptoms after duonebs, magnesium and SOLU-Medrol. CXR is clear. Patient to be admitted under medical services, Dr. Adames's service. ____ Scribe Attestation: Documented by Martina Morillo, acting as a scribe for Brynn Hayes MD. Provider Scribe Attestation: All medical record entries made by the Scribe were at my direction and personally dictated by me. I have reviewed the chart and agree that the record accurately reflects my personal performance of the history, physical exam, medical decision making, and the department course for this patient. I have also personally directed, reviewed, and agree with the discharge instructions and disposition. Disposition - Disposition Forms: [facility] (Romanian)
--- NOTE | 2018-04-22 15:24 | CARD ---
APPROVED REPORT Date of service: 04/22/2018 EKG Measurement Heart [id number] <Conclusion> Normal sinus rhythm Nonspecific ST abnormality Abnormal ECG
--- NOTE | 2018-04-22 15:25 | RAD ---
Date of service: 04/22/2018 HISTORY: Cough COMPARISON: 02/12/2018. TECHNIQUE: Chest PA and lateral FINDINGS: LINES AND TUBES: None. LUNG AND PLEURA: The lungs are hyperinflated and there is peribronchial thickening with chronic changes in both lungs. No focal consolidation. No pleural effusion or pneumothorax. HEART AND MEDIASTINUM: The heart is not enlarged. No aortic atherosclerotic calcifications present. The hilar and mediastinal contours are within normal limits. SKELETAL STRUCTURES: There is diffuse bone demineralization. There are old osteoporotic compression deformities in the mid and lower thoracic spine. VISUALIZED UPPER ABDOMEN: Normal. OTHER FINDINGS: None. IMPRESSION: No active pulmonary disease. COPD.
[2018-04-22 15:26] LABS: BASO # 0.1 K/uL (0.0-0.2); BASO % 0.8 % (0.0-2.0); EOS # 2.3 K/uL (0.0-0.7); EOS % 26.1 % (0.0-4.0); HEMOGLOBIN 13.1 g/dL (12.0-16.0); LYMPH # 1.5 K/uL (1.0-4.3); LYMPH % 16.6 % (20.0-40.0); MEAN CELL VOLUME 84.8 fl (81.0-99.0); MEAN PLATELET VOLUME 8.1 fl (7.2-11.7); MONO # 0.9 K/uL (0.0-0.8); MONO % 9.6 % (0.0-10.0); NEUT # 4.2 K/uL (1.8-7.0); NEUT % 46.9 % (50.0-75.0); NRBC % 0.2 % (0.0-0.0); PLATELET COUNT 270 K/uL (130-400); RBC 4.69 Mil/uL (3.80-5.20); RED CELL DISTRIBUTION WIDTH 13.8 % (11.5-14.5)
[2018-04-22 15:35] LABS: BLOOD UREA NITROGEN 10 mg/dl (7-17); CALCIUM 9.5 mg/dL (8.4-10.2); GFR NON-AFRICAN AMERICAN > 60
[2018-04-22] MEDS ORDERED: Azithromycin 500 MG IV IVPB ONE (16:51)
[2018-04-22] MEDS ORDERED: Azithromycin 500 MG in Sodium Chloride 0.9% 250 ML IVPB STA (16:53)
[2018-04-22 17:14] LABS: VENOUS BLOOD GAS BASE EXCESS 2.2 mmol/L (0.0-2.0); VENOUS BLOOD GAS PCO2 49 mmHg (40-60); VENOUS BLOOD GAS PO2 49 mm/Hg (30-55); VENOUS BLOOD PH 7.37 (7.32-7.43)
[2018-04-22 17:48] LABS: BANDS 4 % (0-2); EOSINOPHIL 18 % (0-7); LYMPHOCYTE 15 % (20-50); MONOCYTE 7 % (0-10); NEUTROPHIL 56 % (42-75); TOTAL CELLS COUNTED 100
[2018-04-22 17:49] LABS: PLATELET ESTIMATE NORMAL (NORMAL)
[2018-04-22 17:51] LABS: HYPOCHROMIC SLIGHT; MICROCYTOSIS SLIGHT
[2018-04-22] MEDS: Albuterol-Ipratrop 3 mg / 0.5 (3 ml) UD INH SCH (21:29)
[2018-04-23 05:52] LABS: HEMOGLOBIN 12.4 g/dL (12.0-16.0); MEAN CORPUSCULAR HEMOGLOBIN 28.2 pg (27.0-31.0); MEAN CORPUSCULAR HGB CONC 33.5 g/dL (33.0-37.0); RBC 4.42 Mil/uL (3.80-5.20); RED CELL DISTRIBUTION WIDTH 13.9 % (11.5-14.5)
[2018-04-23 06:11] LABS: ALB/GLOB RATIO 1.3 (1.0-2.1); ALBUMIN 4.1 g/dL (3.5-5.0); ALT/SGPT 19 U/L (9-52); AST/SGOT 22 U/L (14-36); BLOOD UREA NITROGEN 16 mg/dl (7-17); CALCIUM 9.3 mg/dL (8.4-10.2); GFR NON-AFRICAN AMERICAN > 60
[2018-04-23] MEDS: Albuterol-Ipratrop 3 mg / 0.5 (3 ml) UD INH SCH ×4 (08:00→19:09)
[2018-04-23] MEDS: Fluticasone-Salmeterol 250-50mcg Diskus IH SCH ×2 (08:53→20:41)
[2018-04-23] MEDS: Azithromycin 500 MG in Sodium Chloride 0.9% 250 ML IVPB SCH (08:58)
[2018-04-23] MEDS ORDERED: AMLODIPINE BESYLATE PO SCH (09:00)
[2018-04-23] MEDS ORDERED: Patient's Own Med (Fluticasone/Vilanterol [Breo Ellipta 200-25 Mcg Inh] 1 PUFF) IH SCH (09:00)
[2018-04-23] MEDS ORDERED: BENAZEPRIL PO SCH (09:00)
[2018-04-23] MEDS ORDERED: [UNRECOGNIZED DRUG - OTHER] PO SCH (09:00)
[2018-04-23] MEDS ORDERED: Azithromycin 500 MG in Sodium Chloride 0.9% 250 ML IVPB SCH (09:00)
--- NOTE | 2018-04-23 11:10 | IP.NPCORE ---
COPD Progress Note - COPD Progress Note Spirometry Assessment Completed:: No Plan to assess at outpatient follow up: Yes Symptoms:: Increase in Dyspnea, Cough Initial CXR:: yes Date:: 04/22/18 Oxygen Saturation/Pulse Oximetry:: 97 ABG:: yes Date:: 04/22/18 Nebulizers Q2-4 hrs:: Duonebs/Albuterol Therapy Antibiotics (Name/Dose/Frequency):: Azithromycin Systemic Steroids w/ methylprednisolone Name/Dose/Frequency:: yes Oxygen Delivery Method: Nasal Cannula Oxygen Flow Rate: 2 Smoking cessation counseling all stages copd exacerbation: Yes (Pt no longer smokes)
[2018-04-23] MEDS: MethylPREDNISolone 40 mg Vial IVP SCH (20:44)
[2018-04-23] MEDS ORDERED: guaiFENesin DM 200 mg-20 mg/10 ml UD PO PRN (21:00)
[2018-04-23] MEDS ORDERED: Albuterol-Ipratrop 3 mg / 0.5 (3 ml) UD INH STA (23:16)
[2018-04-24] MEDS: Albuterol-Ipratrop 3 mg / 0.5 (3 ml) UD INH SCH ×3 (07:51→15:54)
[2018-04-24] MEDS: Fluticasone-Salmeterol 250-50mcg Diskus IH SCH (08:15)
[2018-04-24] MEDS: Azithromycin 500 MG in Sodium Chloride 0.9% 250 ML IVPB SCH (08:20)
--- NOTE | 2018-04-24 08:25 | CP.PCM.HP ---
History of Present Illness - History of Present Illness History of Present Illness: This is a 68 y/o female admitted for worsening of cough and wheezing for the past few days. She had seen her PMD and was started on albuterol and spiriva but to no vavail. She was also given steroid pump. Sx worsened hence sought Er eval where she was noted to be in COPD excaerbation Medical Hx HTN COPD Present on Admission - Present on Admission Any Indicators Present on Admission: No History of DVT/PE: No History of Uncontrolled Diabetes: No Urinary Catheter: No Decubitus Ulcer Present: No Review of Systems - Respiratory Respiratory: Cough, Dyspnea Past Patient History - Infectious Disease Hx of Infectious Diseases: None - Past Medical History & Family History Past Medical History?: Yes - Past Social History Smoking Status: Former Smoker - CARDIAC Hx Cardiac Disorders: Yes Hx Hypertension: Yes - PULMONARY Hx Respiratory Disorders: Yes Hx Asthma: Yes Hx Chronic Obstructive Pulmonary Disease (COPD): Yes Hx Emphysema: Yes - NEUROLOGICAL Hx Neurological Disorder: No - HEENT Hx HEENT Problems: Yes Other/Comment: Use reading glasses - RENAL Hx Chronic Kidney Disease: No - ENDOCRINE/METABOLIC Hx Endocrine Disorders: No - HEMATOLOGICAL/ONCOLOGICAL Hx Human Immunodeficiency Virus (HIV): No - INTEGUMENTARY Hx Dermatological Problems: No - MUSCULOSKELETAL/RHEUMATOLOGICAL Hx Falls: Yes Hx Osteoporosis: Yes Other/Comment: back problems - GASTROINTESTINAL Hx Gastrointestinal Disorders: No - GENITOURINARY/GYNECOLOGICAL Hx Genitourinary Disorders: No - PSYCHIATRIC Hx Psychophysiologic Disorder: Yes Hx Depression: Yes Hx Substance Use: No - SURGICAL HISTORY Hx Surgeries: Yes Other/Comment: varicose vein surgery to the R leg 1994 - ANESTHESIA Hx Anesthesia: Yes Hx Anesthesia Reactions: No Hx Malignant Hyperthermia: No Meds Allergies/Adverse Reactions: Allergies Allergy/AdvReac Type Severity Reaction Status Date / Time codeine Allergy RASH Verified 08/20/17 14:43 hydromorphone HCl AdvReac FATIGUE Verified 08/20/17 14:43 [From Dilaudid] Physical Exam - Head Exam Head Exam: NORMAL INSPECTION - Eye Exam Eye Exam: Normal appearance - ENT Exam ENT Exam: Mucous Membranes Moist - Respiratory Exam Respiratory Exam: Decreased Breath Sounds, Rhonchi - Cardiovascular Exam Cardiovascular Exam: REGULAR RHYTHM - GI/Abdominal Exam GI & Abdominal Exam: Normal Bowel Sounds - Neurological Exam Neurological exam: CN II-XII Intact Results - Vital Signs Recent Vital Signs: Last Vital Signs Temp 97.8 F 04/23/18 23:29 Pulse 94 H 04/24/18 08:19 Resp 18 04/23/18 23:29 BP 113/69 04/24/18 08:19 Pulse Ox 96 04/23/18 23:29 - Labs Result Diagrams: 04/23/18 04:26 04/23/18 04:26 Assessment & Plan (1) COPD exacerbation Status: Acute (2) Hypertension Status: Acute - Assessment and Plan (Free Text) Plan: Cont solumedrol and taper start Iv anttibiotic s neb tx DC tramadol and montelukast
[2018-04-24] MEDS ORDERED: Pantoprazole 40 mg EC Tab PO SCH (09:00)
[2018-04-24] MEDS: MethylPREDNISolone 40 mg Vial IVP SCH (09:01)
[2018-04-24 14:08] VITALS: RESP 18
[2018-04-24 16:14] VITALS: BP 138/80; PULSE 98; TEMP 98; O2SAT 96
--- NOTE | 2018-04-24 23:09 | CP.PCM.DIS ---
Provider - Provider Date of Admission: 04/22/18 16:20 Attending physician: Michael Adames MD Time Spent in preparation of Discharge (in minutes): 30 Diagnosis - Discharge Diagnosis (1) Acute asthma exacerbation Status: Acute Hospital Course - Lab Results Lab Results: Micro Results 04/22/18 18:26 Blood Blood Culture - Preliminary NO GROWTH AFTER 48 HOURS 04/22/18 18:14 Blood Blood Culture - Preliminary NO GROWTH AFTER 48 HOURS Most Recent Lab Values WBC 9.0 K/uL (4.8-10.8) 04/23/18 04:26 RBC 4.42 Mil/uL (3.80-5.20) 04/23/18 04:26 Hgb 12.4 g/dL (12.0-16.0) 04/23/18 04:26 Hct 37.1 % (34.0-47.0) 04/23/18 04:26 MCV 84.0 fl (81.0-99.0) 04/23/18 04:26 MCH 28.2 pg (27.0-31.0) 04/23/18 04:26 MCHC 33.5 g/dL (33.0-37.0) 04/23/18 04:26 RDW 13.9 % (11.5-14.5) 04/23/18 04:26 Plt Count 271 K/uL (130-400) 04/23/18 04:26 MPV 8.1 fl (7.2-11.7) 04/22/18 15:10 Neut % (Auto) 46.9 % (50.0-75.0) L 04/22/18 15:10 Lymph % (Auto) 16.6 % (20.0-40.0) L 04/22/18 15:10 [place] % (Auto) 9.6 % (0.0-10.0) 04/22/18 15:10 Eos % (Auto) 26.1 % (0.0-4.0) H 04/22/18 15:10 Baso % (Auto) 0.8 % (0.0-2.0) 04/22/18 15:10 Neut # (Auto) 4.2 K/uL (1.8-7.0) 04/22/18 15:10 Lymph # (Auto) 1.5 K/uL (1.0-4.3) 04/22/18 15:10 [place] # (Auto) 0.9 K/uL (0.0-0.8) H 04/22/18 15:10 Eos # (Auto) 2.3 K/uL (0.0-0.7) H 04/22/18 15:10 Baso # (Auto) 0.1 K/uL (0.0-0.2) 04/22/18 15:10 Neutrophils % (Manual) 56 % (42-75) 04/22/18 15:10 Band Neutrophils % 4 % (0-2) H 04/22/18 15:10 Lymphocytes % (Manual) 15 % (20-50) L 04/22/18 15:10 Monocytes % (Manual) 7 % (0-10) 04/22/18 15:10 Eosinophils % (Manual) 18 % (0-7) H 04/22/18 15:10 Platelet Estimate Normal (NORMAL) 04/22/18 15:10 Hypochromasia (manual) Slight 04/22/18 15:10 Microcytosis (manual) Slight 04/22/18 15:10 pO2 49 mm/Hg (30-55) 04/22/18 16:51 VBG pH 7.37 (7.32-7.43) 04/22/18 16:51 VBG pCO2 49 mmHg (40-60) 04/22/18 16:51 VBG HCO3 26.3 mmol/L 04/22/18 16:51 VBG Total CO2 29.8 mmol/L (22-28) H 04/22/18 16:51 VBG O2 Sat (Calc) 88.3 % (40-65) H 04/22/18 16:51 VBG Base Excess 2.2 mmol/L (0.0-2.0) H 04/22/18 16:51 VBG Potassium 3.6 mmol/L (3.6-5.2) 04/22/18 16:51 Sodium 138.0 mmol/L (132-148) 04/22/18 16:51 Chloride 106.0 mmol/L (98-107) 04/22/18 16:51 Glucose 231 mg/dL (65-105) H 04/22/18 16:51 Lactate 1.2 mmol/L (0.7-2.1) 04/22/18 16:51 FiO2 21.0 % 04/22/18 16:51 Sodium 136 mmol/l (132-148) 04/23/18 04:26 Potassium 4.7 MMOL/L (3.6-5.0) 04/23/18 04:26 Chloride 98 mmol/L (98-107) 04/23/18 04:26 Carbon Dioxide 27 mmol/L (22-30) 04/23/18 04:26 Anion Gap 16 (10-20) 04/23/18 04:26 BUN 16 mg/dl (7-17) 04/23/18 04:26 Creatinine 0.6 mg/dl (0.7-1.2) L 04/23/18 04:26 Est GFR ( Amer) > 60 04/23/18 04:26 Est GFR (Non-Af Amer) > 60 04/23/18 04:26 Random Glucose 235 mg/dL (65-105) H 04/23/18 04:26 Calcium 9.3 mg/dL (8.4-10.2) 04/23/18 04:26 Total Bilirubin 0.3 mg/dl (0.2-1.3) 04/23/18 04:26 AST 22 U/L (14-36) 04/23/18 04:26 ALT 19 U/L (9-52) 04/23/18 04:26 Alkaline Phosphatase 128 U/L (38-126) H 04/23/18 04:26 Troponin I < 0.0120 ng/mL (0.00-0.120) 04/22/18 15:10 Total Protein 7.4 G/DL (6.3-8.2) 04/23/18 04:26 Albumin 4.1 g/dL (3.5-5.0) 04/23/18 04:26 Globulin 3.3 gm/dL (2.2-3.9) 04/23/18 04:26 Albumin/Globulin Ratio 1.3 (1.0-2.1) 04/23/18 04:26 Venous Blood Potassium 3.6 mmol/L (3.6-5.2) 04/22/18 16:51 Influenza Typ A,B (EIA) Negative for flu a/b (NEGATIVE) 04/22/18 15:20 - Hospital Course Hospital Course: Pt presented to ED with shortness of breath and chest tightness. She was admitted to [address] [place] [address] (med-surg), where she received steroid and duoneb treatments. Clinically, she improved and was discharged home with Azithromycin, medrol dosepak, and cough medicine. Discharge Exam - Head Exam Head Exam: NORMAL INSPECTION, NORMOCEPHALIC - Eye Exam Eye Exam: EOMI, Normal appearance, PERRL Pupil Exam: PERRL - ENT Exam ENT Exam: Mucous Membranes Dry - Neck Exam Neck exam: Full Rom - Respiratory Exam Respiratory Exam: Decreased Breath Sounds, Wheezes - Cardiovascular Exam Cardiovascular Exam: REGULAR RHYTHM, +S1, +S2 - GI/Abdominal Exam GI & Abdominal Exam: Normal Bowel Sounds, Soft - Extremities Exam Extremities exam: full ROM - Back Exam Back exam: NORMAL INSPECTION - Neurological Exam Neurological exam: Alert, Oriented x3 - Psychiatric Exam Psychiatric exam: Normal Affect, Normal Mood - Skin Skin Exam: Dry, Normal Color, Warm Discharge Plan - Discharge Medications Prescriptions: Albuterol/Ipratropium [Duoneb 3 mg/0.5 mg (3 ml) UD] 3 ml INH Q6 PRN #30 neb PRN Reason: Shortness Of Breath Azithromycin [Z-Orlin] 250 mg PO DAILY #6 tab guaiFENesin/Dextromethorphan [Robitussin DM] 10 ml PO Q4 PRN #120 ml PRN Reason: Cough Methylprednisolone [Medrol Dose Pack (21 tabs)] 4 mg PO DAILY #21 mg - Follow Up Plan Condition: FAIR Disposition: HOME/ ROUTINE Instructions: Exacerbation of COPD (DC) Additional Instructions: hacer kaylin con jose primario dentro 1 semana Referrals: Nina Cruz MD [Family Provider] -
== END 2018-04-24 16:15 | disposition home health service (06) | DRG 191 ==
LOC: H.ER 13:30 → H.ERHOLD 16:20 → H.MEDSURG1 18:13
PROVIDERS: ADMIT Family Medicine; ATTEND Family Medicine
PROC: 3E0F73Z Introduction of Anti-inflammatory into Respiratory Tract, Via Natural or Artificial Opening (ICD-10-PCS; principal; 2018-04-22)
PROC: 3E0F7GC Introduction of Other Therapeutic Substance into Respiratory Tract, Via Natural or Artificial Opening (ICD-10-PCS; 2018-04-22)
DX: J43.9 Emphysema, unspecified (principal); J45.901 Unspecified asthma with (acute) exacerbation; I10 Essential (primary) hypertension; M79.7 Fibromyalgia; M81.0 Age-related osteoporosis without current pathological fracture; Z87.891 Personal history of nicotine dependence; Z88.6 Allergy status to analgesic agent

== ENCOUNTER 2018-07-01 12:37 | Emergency (ER) | payer MEDICARE, MEDICAID ==
[2018-07-01 12:37] VITALS: BMI 34.7
[2018-07-01] MEDS ORDERED: Albuterol-Ipratrop 3 mg / 0.5 (3 ml) UD ONE ×2 (13:22→17:37)
[2018-07-01] MEDS ORDERED: Albuterol-Ipratrop 3 mg / 0.5 (3 ml) UD INH STA ×3 (14:02→16:57)
--- NOTE | 2018-07-01 14:06 | ED PDOC ---
HPI: SOB/CHF/COPD Time Seen by Provider: 07/01/18 13:00 Chief Complaint (Nursing): Shortness Of Breath Chief Complaint (Provider): Shortness of breath, cough History Per: Patient History/Exam Limitations: no limitations Onset/Duration Of Symptoms: Days Current Symptoms Are (Timing): Still Present Current Respiratory Medications: Other (nebulizer treatment) Associated Symptoms: denies: Fever, Chills, Chest Pain Additional History Per: Patient Additional Complaint(s): 68yo female, with history of COPD, asthma, comes to ER reporting shortness of breath, with associated cough and wheezing x 1 week. no complaints of fever, chills, chest pain. PMD: Dr. Cruz Past Medical History Reviewed: Historical Data, Nursing Documentation, Vital Signs Vital Signs: Last Vital Signs Temp 97.8 F 07/01/18 12:46 Pulse 91 H 07/01/18 12:46 Resp 24 07/01/18 13:09 BP 142/89 07/01/18 12:46 Pulse Ox 97 07/01/18 13:09 - Medical History PMH: Arthritis, Asthma, Back Problems (h/o thoracic and lumbar vertebral fractures), COPD, Depression, Emphysema, Fibromyalgia, HTN, Osteoporosis Denies: HIV, Chronic Kidney Disease - Surgical History Surgical History: No Surg Hx - Family History Family History: States: Hypertension - Social History Current smoker - smoking cessation education provided: No Ex-Smoker (has not smoked in the last 12 months): Yes Alcohol: None Drugs: Denies - Home Medications Home Medications: Ambulatory Orders Medication Instructions Recorded Zolpidem [Ambien] 10 mg PO HS 11/17/14 Gabapentin [Neurontin] 600 mg PO Q12 03/29/15 traMADol [Ultram] 50 mg PO Q8 PRN 03/29/15 Amlodipine Besylate/Benazepril 1 cap PO DAILY 04/23/16 [Amlodipine-Benazepril 5-20 mg] Fluticasone/Vilanterol [Breo 1 puff IH DAILY 04/23/16 Ellipta 200-25 Mcg INH] Albuterol HFA [Ventolin HFA 90 2 puff IH Q6 PRN 04/22/18 mcg/actuation (8 g)] Turmeric Root Extract [Turmeric 1 cap PO BID 04/22/18 Curcumin] Albuterol/Ipratropium [Duoneb 3 3 ml INH Q6 PRN #30 neb 04/24/18 mg/0.5 mg (3 ml) UD] Azithromycin [Z-Orlin] 250 mg PO DAILY #6 tab 04/24/18 Methylprednisolone [Medrol Dose 4 mg PO DAILY #21 mg 04/24/18 Pack (21 tabs)] guaiFENesin/Dextromethorphan 10 ml PO Q4 PRN #120 ml 04/24/18 [Robitussin DM] Albuterol HFA [Ventolin HFA 90 1 - 2 puff IH Q4H PRN #1 bottle 07/01/18 mcg/actuation (8 g)] predniSONE [Prednisone] 40 mg PO DAILY #8 tab 07/01/18 - Allergies Allergies/Adverse Reactions: Allergies Allergy/AdvReac Type Severity Reaction Status Date / Time codeine Allergy RASH Verified 08/20/17 14:43 hydromorphone HCl AdvReac FATIGUE Verified 08/20/17 14:43 [From Dilaudid] Review of Systems ROS Statement: Except As Marked, All Systems Reviewed And Found Negative Constitutional: Negative for: Fever, Chills Cardiovascular: Negative for: Chest Pain Respiratory: Positive for: Cough, Shortness of Breath, Wheezing Physical Exam - Reviewed Nursing Documentation Reviewed: Yes Vital Signs Reviewed: Yes - Physical Exam Appears: Positive for: Non-toxic, Uncomfortable Head Exam: Positive for: ATRAUMATIC, NORMAL INSPECTION, NORMOCEPHALIC Skin: Positive for: Normal Color Eye Exam: Positive for: Normal appearance ENT: Positive for: Normal ENT Inspection Neck: Positive for: Normal, Supple Cardiovascular/Chest: Positive for: Regular Rate, Rhythm. Negative for: Tachycardia Respiratory: Positive for: Wheezing, Other (speaking in full sentences, good air entry bilaterally). Negative for: Rales, Rhonchi, Respiratory Distress Gastrointestinal/Abdominal: Positive for: Normal Exam, Soft Back: Positive for: Normal Inspection Extremity: Positive for: Normal ROM. Negative for: Pedal Edema Neurological/Psych: Positive for: Awake, Alert, Normal Tone - Laboratory Results Result Diagrams: 07/01/18 14:05 07/01/18 14:05 - ECG O2 Sat by Pulse Oximetry: 97 (RA) Pulse Ox Interpretation: Normal Medical Decision Making Medical Decision Making: Impression: 68yo female with shortness of breath, wheeze, cough Plan: -- Labs -- Duoneb 3ml INH -- SOlumedrol 125mg IVP 16:15 On reassessment patient reports improvement of symptoms, however on repeat exam patient has minimal wheezing Additional dosage of Duoneb ordered cxr no active disease 1716 Labs reviewed and are grossly unremarkable. Patient reports improvement, vital signs improved as well. Patient to be discharged home with prescription for prednisone and albuterol. Informed to follow up with PMD in 1-2 days. and to return immediately with any worsening symptoms. pt agreeable. pt observed to vbe ambulating in the ER in no acute respiratory distress. Scribe Attestation: Documented by Dori Ny acting as a scribe for Donal Sanchez MD. Provider Attestation: All medical record entries made by the Scribe were at my direction and personally dictated by me. I have reviewed the chart and agree that the record accurately reflects my personal performance of the history, physical exam, medical decision making, and the department course for this patient. I have also personally directed, reviewed, and agree with the discharge instructions and disposition. Disposition - Clinical Impression Clinical Impression: COPD (chronic obstructive pulmonary disease) - Patient ED Disposition Is Patient to be Admitted: No Counseled Patient/Family Regarding: Studies Performed, Diagnosis, Need For Followup - Disposition Disposition: Routine/Home Disposition Time: 17:00 Condition: IMPROVED Additional Instructions: follow up with your primary doctor in 1-2 days return to the ED with any worsening or concerning symptoms Prescriptions: Albuterol HFA [Ventolin HFA 90 mcg/actuation (8 g)] 1 - 2 puff IH Q4H PRN #1 bottle PRN Reason: Wheezing predniSONE [Prednisone] 40 mg PO DAILY #8 tab Instructions: Chronic Obstructive Pulmonary Disease (COPD), Including Emphysema Forms: [employer] [facility] (Hebrew)
[2018-07-01 14:25] LABS: BASO # 0.1 K/uL (0.0-0.2); BASO % 0.9 % (0.0-2.0); EOS # 1.9 K/uL (0.0-0.7); EOS % 20.9 % (0.0-4.0); HEMOGLOBIN 13.6 g/dL (12.0-16.0); LYMPH # 1.5 K/uL (1.0-4.3); LYMPH % 16.6 % (20.0-40.0); MEAN CELL VOLUME 85.6 fl (81.0-99.0); MEAN CORPUSCULAR HGB CONC 32.7 g/dL (33.0-37.0); MEAN PLATELET VOLUME 7.8 fl (7.2-11.7); MONO # 0.9 K/uL (0.0-0.8); NEUT # 4.8 K/uL (1.8-7.0); NEUT % 51.6 % (50.0-75.0); NRBC % 0.1 % (0.0-0.0); PLATELET COUNT 283 K/uL (130-400); RBC 4.85 Mil/uL (3.80-5.20); RED CELL DISTRIBUTION WIDTH 14.4 % (11.5-14.5); WHITE BLOOD COUNT 9.3 K/uL (4.8-10.8)
[2018-07-01 14:31] LABS: ALB/GLOB RATIO 1.3 (1.0-2.1); ALBUMIN 4.2 g/dL (3.5-5.0); ALT/SGPT 23 U/L (9-52); AST/SGOT 28 U/L (14-36); BLOOD UREA NITROGEN 12 mg/dl (7-17); CALCIUM 9.3 mg/dL (8.4-10.2); GFR NON-AFRICAN AMERICAN > 60
--- NOTE | 2018-07-01 16:21 | RAD ---
Date of service: 07/01/2018 HISTORY: Shortness of breath. COMPARISON: 04/22/2018. TECHNIQUE: Chest PA and lateral views FINDINGS: LUNGS: No active pulmonary disease. PLEURA: No significant pleural effusion identified. No pneumothorax apparent. CARDIOVASCULAR: No aortic atherosclerotic calcification present. Normal cardiac size. No pulmonary vascular congestion. OSSEOUS STRUCTURES: No significant abnormalities. VISUALIZED UPPER ABDOMEN: Normal. OTHER FINDINGS: None. IMPRESSION: No active disease. No significant interval change compared to the prior examination(s).
[2018-07-01 16:48] VITALS: BP 165/96; PULSE 101; RESP 21; TEMP 98.5
[2018-07-01 17:17] VITALS: O2SAT 97
[2018-07-01 17:32] LABS: BASOPHIL 1 % (0-2); EOSINOPHIL 19 % (0-7); LYMPHOCYTE 22 % (20-50); MONOCYTE 6 % (0-10); NEUTROPHIL 44 % (42-75); PLATELET ESTIMATE NORMAL (NORMAL); REACTIVE LYMPHOCYTES 8 % (0-0); TOTAL CELLS COUNTED 100
--- NOTE | 2018-07-01 20:08 | CARD ---
APPROVED REPORT Date of service: 07/01/2018 EKG Measurement Heart [id number] <Conclusion> Normal sinus rhythm Normal ECG
== END 2018-07-01 17:37 | disposition home or self-care (01) ==
LOC: H.ER 12:37
DX: J44.9 Chronic obstructive pulmonary disease, unspecified (principal); I10 Essential (primary) hypertension; Z87.891 Personal history of nicotine dependence; Z88.5 Allergy status to narcotic agent; Z79.899 Other long term (current) drug therapy; M81.0 Age-related osteoporosis without current pathological fracture; M79.7 Fibromyalgia
CPT/HCPCS: 71046; 80053; 85025; 93005; 96374; 99283; J2930